=== PATIENT | male | born 1960 | race Caucasian/White ===

== ENCOUNTER 2018-08-10 16:46 | Observation (INO) | payer BC ==
[2018-08-10] MEDS ORDERED: Pantoprazole 40 MG Vial IVPUSH ONE (17:02)
[2018-08-10] MEDS ORDERED: Ondansetron 4 MG/2 ML SDV IV PRN (17:02)
[2018-08-10] MEDS ORDERED: Acetaminophen 325 MG Tab PO PRN (17:02)
[2018-08-10] MEDS ORDERED: Zolpidem 5 MG Tab PO PRN (17:02)
[2018-08-10] MEDS ORDERED: Levofloxacin/Dextrose 5%-Water 500 MG in Premix Bag 1 BAG IV SCH ×2 (17:15→20:00)
[2018-08-10] MEDS ORDERED: metroNIDAZOLE/Normal Saline 500 MG in Premix Bag 1 BAG IV SCH (17:15)
[2018-08-10] MEDS ORDERED: fentaNYL 100 MCG/2 ML SDV IVPUSH PRN (17:41)
[2018-08-10] MEDS: Sodium Chloride 0.9% 1,000 ML IV SCH (17:45)
[2018-08-10] MEDS: fentaNYL 100 MCG/2 ML SDV IVPUSH PRN (18:13)
[2018-08-10] MEDS ORDERED: Tamsulosin 0.4 MG Cap.ER PO ONE (21:03)
[2018-08-10] MEDS: cefTRIAXone 1 GM Vial IVPUSH SCH (21:06)
[2018-08-10] MEDS: Ketorolac 30 MG/ML SDV IVPUSH PRN (21:24)
[2018-08-10] MEDS: Enoxaparin 40 MG/0.4 ML Syringe SUBCUT SCH (21:52)
[2018-08-11] MEDS: Sodium Chloride 0.9% 1,000 ML IV SCH ×3 (03:50→19:29)
[2018-08-11] MEDS: Tamsulosin 0.4 MG Cap.ER PO SCH (08:51)
[2018-08-11] MEDS: Acetaminophen/oxyCODONE 325-5 MG Tab PO PRN ×2 (08:51→16:24)
--- NOTE | 2018-08-11 08:52 | PCM.PN ---
- General Info Date of Service: 08/11/18 Admission Dx/Problem (Free Text): Abdominal Pain Functional Status: Reports: Tolerating Diet, Ambulating, Urinating. Denies: Pain Controlled - Review of Systems General: Denies: Fever, Weakness, Fatigue, Malaise HEENT: Reports: No Symptoms Pulmonary: Denies: Shortness of Breath, Cough Cardiovascular: Denies: Chest Pain, Edema, Lightheadedness Gastrointestinal: Reports: Abdominal Pain. Denies: Nausea, Vomiting Genitourinary: Reports: Hematuria (noted pink-tinged urine this am, pain returned around 0630), Flank Pain Musculoskeletal: Reports: No Symptoms Skin: Reports: No Symptoms Neurological: Reports: No Symptoms Psychiatric: Reports: No Symptoms - Patient Data Vitals - Most Recent: Last Vital Signs Temp 98.4 F 08/11/18 08:01 Pulse 76 08/11/18 08:01 Resp 20 08/11/18 08:01 BP 130/60 08/11/18 08:01 Pulse Ox 97 08/11/18 08:01 Weight - Most Recent: 239 lb 4.8 oz I&O - Last 24 Hours: Intake & Output 08/10/18 08/11/18 08/11/18 22:59 06:59 14:59 Intake Total 1150 Output Total 1100 Balance 50 Lab Results Last 24 Hours: Laboratory Results - last 24 hr 08/10/18 08/10/18 08/10/18 Range/Units 17:02 17:02 17:02 WBC 10.5 H (5.0-10.0) 10^3/uL RBC 4.31 L (4.50-6.00) 10^6/uL Hgb 13.7 L (14.0-18.0) g/dL Hct 39.7 L (40.0-54.0) % MCV 92.1 (82.0-94.0) fL MCH 31.8 (27.0-32.0) pg MCHC 34.5 (33.0-38.0) g/dL RDW Coeff of Silvio 12.4 (11.0-15.0) % Plt Count 201 (150-400) 10^3/uL Neut % (Auto) 77.1 (35-85) % Lymph % (Auto) 13.1 (10-55) % [place] % (Auto) 6.8 (0-16) % Eos % (Auto) 2.6 (0-5) % Baso % (Auto) 0.4 (0-3) % Neut # (Auto) 8.13 H (1.80-7.00) 10^3/uL Lymph # (Auto) 1.38 (1.00-4.80) 10^3/uL [place] # (Auto) 0.72 (0.00-0.80) 10^3/uL Eos # (Auto) 0.27 (0.00-0.45) 10^3/uL Baso # (Auto) 0.04 10^3/uL Sodium 137 (136-145) mEq/L Potassium 4.2 (3.5-5.0) mEq/L Chloride 99 (98-106) mEq/L Carbon Dioxide 26 (21-32) mmol/L BUN 18 (7-18) mg/dL Creatinine 1.3 D (0.7-1.3) mg/dL Est Cr Clr Drug Dosing 64.73 mL/min Estimated GFR (MDRD) 57 L (>=60) mL/min Glucose 131 H (75-99) mg/dL POC Glucose (75-105) mg/dl Calcium 9.1 (8.4-10.1) mg/dL Total Bilirubin 0.8 (0.0-1.0) mg/dL AST 11 L (15-37) U/L ALT 26 (12-78) U/L Alkaline Phosphatase 70 (46-116) U/L C-Reactive Protein 4.8 H (0.2-0.8) mg/dL Total Protein 8.2 (6.4-8.2) g/dL Albumin 3.9 (3.4-5.0) g/dL Amylase (25-115) U/L Lipase (73-393) U/L Urine Color Yellow (YELLOW) Urine Appearance Clear (CLEAR) Urine pH 5.0 (4.5-8.0) Ur Specific [place] 1.010 (1.003-1.020) Urine Protein Negative (NEGATIVE) mg/dL Urine Glucose (UA) Negative (NEGATIVE) mg/dL Urine Ketones 15 H (NEGATIVE) mg/dL Urine Occult Blood Negative (NEGATIVE) Urine Nitrite Negative (NEGATIVE) Urine Bilirubin Negative (NEGATIVE) Urine Urobilinogen 0.2 (0.2-1.0) EU/dL Ur Leukocyte Esterase Negative (NEGATIVE) Urine RBC Not seen (0-5) /HPF Urine WBC Not seen (0-5) /HPF 08/10/18 08/10/18 08/11/18 Range/Units 19:35 20:27 07:49 WBC (5.0-10.0) 10^3/uL RBC (4.50-6.00) 10^6/uL Hgb (14.0-18.0) g/dL Hct (40.0-54.0) % MCV (82.0-94.0) fL MCH (27.0-32.0) pg MCHC (33.0-38.0) g/dL RDW Coeff of Silvio (11.0-15.0) % Plt Count (150-400) 10^3/uL Neut % (Auto) (35-85) % Lymph % (Auto) (10-55) % [place] % (Auto) (0-16) % Eos % (Auto) (0-5) % Baso % (Auto) (0-3) % Neut # (Auto) (1.80-7.00) 10^3/uL Lymph # (Auto) (1.00-4.80) 10^3/uL [place] # (Auto) (0.00-0.80) 10^3/uL Eos # (Auto) (0.00-0.45) 10^3/uL Baso # (Auto) 10^3/uL Sodium (136-145) mEq/L Potassium (3.5-5.0) mEq/L Chloride (98-106) mEq/L Carbon Dioxide (21-32) mmol/L BUN (7-18) mg/dL Creatinine (0.7-1.3) mg/dL Est Cr Clr Drug Dosing mL/min Estimated GFR (MDRD) (>=60) mL/min Glucose (75-99) mg/dL POC Glucose 142 H 126 H (75-105) mg/dl Calcium (8.4-10.1) mg/dL Total Bilirubin (0.0-1.0) mg/dL AST (15-37) U/L ALT (12-78) U/L Alkaline Phosphatase (46-116) U/L C-Reactive Protein (0.2-0.8) mg/dL Total Protein (6.4-8.2) g/dL Albumin (3.4-5.0) g/dL Amylase 39 (25-115) U/L Lipase 100 (73-393) U/L Urine Color (YELLOW) Urine Appearance (CLEAR) Urine pH (4.5-8.0) Ur Specific [place] (1.003-1.020) Urine Protein (NEGATIVE) mg/dL Urine Glucose (UA) (NEGATIVE) mg/dL Urine Ketones (NEGATIVE) mg/dL Urine Occult Blood (NEGATIVE) Urine Nitrite (NEGATIVE) Urine Bilirubin (NEGATIVE) Urine Urobilinogen (0.2-1.0) EU/dL Ur Leukocyte Esterase (NEGATIVE) Urine RBC (0-5) /HPF Urine WBC (0-5) /HPF Med Orders - Current: Current Medications Acetaminophen (Tylenol) 650 mg PO Q4H PRN PRN Reason: Pain (Mild 1-3)/fever Ceftriaxone Sodium (Rocephin) 1 gm IVPUSH Q24H [facility] Last Admin: 08/10/18 21:06 Dose: 1 gm Enoxaparin Sodium (Lovenox) 40 mg SUBCUT BEDTIME [facility] Last Admin: 08/10/18 21:52 Dose: 40 mg Fentanyl (Sublimaze) 0 mcg IVPUSH Q6H PRN PRN Reason: Abdominal Pain Last Admin: 08/10/18 18:13 Dose: 100 mcg Sodium Chloride (Normal Saline) 1,000 mls @ 125 mls/hr IV ASDIRECTED [facility] Last Admin: 08/11/18 03:50 Dose: 125 mls/hr Ketorolac Tromethamine (Toradol) 30 mg IVPUSH Q6H PRN PRN Reason: Pain Stop: 08/15/18 21:03 Last Admin: 08/10/18 21:24 Dose: 30 mg Ondansetron HCl (Zofran) 8 mg IV Q6H PRN PRN Reason: Nausea/Vomiting Last Admin: 08/10/18 19:54 Dose: 8 mg Oxycodone/Acetaminophen (Percocet 325-5 Mg) 1 - 2 tab PO Q6H PRN PRN Reason: Pain Tamsulosin HCl (Flomax) 0.4 mg PO DAILY [facility] Zolpidem Tartrate (Ambien) 5 mg PO BEDTIME PRN PRN Reason: Sleep Discontinued Medications Fentanyl (Sublimaze) 25 - 50 mcg IVPUSH Q2H PRN PRN Reason: Pain Levofloxacin/Dextrose 500 mg/ (Premix) 100 mls @ 100 mls/hr IV Q24H [facility] Last Admin: 08/10/18 18:59 Dose: Not Given Metronidazole 500 mg/ Premix 100 mls @ 100 mls/hr IV Q8H [facility] Last Admin: 08/10/18 17:48 Dose: 100 mls/hr Levofloxacin/Dextrose 500 mg/ (Premix) 100 mls @ 100 mls/hr IV Q24H [facility] Last Admin: 08/10/18 19:36 Dose: 100 mls/hr Pantoprazole Sodium (Protonix Iv) 40 mg IVPUSH ONETIME ONE Stop: 08/10/18 17:03 Last Admin: 08/10/18 17:50 Dose: 40 mg Tamsulosin HCl (Flomax) 0.4 mg PO ONETIME ONE Stop: 08/10/18 21:04 Last Admin: 08/10/18 21:25 Dose: 0.4 mg - Exam General: Alert, Oriented HEENT: Mucous Membr. Moist/[place] Neck: Supple Lungs: Clear to Auscultation, Normal Respiratory Effort Cardiovascular: Regular Rate, Regular Rhythm GI/Abdominal Exam: Normal Bowel Sounds, Soft, Distended, Tender (Left groin/ pelvic area) Extremities: Normal Inspection, No Pedal Edema Skin: Warm, Dry Neurological: No New Focal Deficit - Problem List & Annotations (1) Ureteral stone SNOMED Code(s): 74502989 Code(s): N20.1 - CALCULUS OF URETER Status: Acute Priority: High Current Visit: Yes - Problem List Review Problem List Initiated/Reviewed/Updated: Yes - My Orders Last 24 Hours: My Active Orders 08/11/18 08:41 Acetaminophen/oxyCODONE [Percocet 325-5 MG] 1 - 2 tab PO Q6H PRN 08/11/18 08:45 Tamsulosin [Flomax] 0.4 mg PO DAILY - Assessment Assessment:: Ureteral Stone Abdominal Pain - Plan Plan:: Patient began having pain this AM around 0630. States urine more pink-tinged today. Has been up and ambulating. No nausea or vomiting. Does continue pain in the left groin/pelvic area. He was able to tolerate full diet this am. Had a reaction last evening to Levaquin, got very nauseated, was sneezing and nose was itching. Zofran was given and has had no further nausea. CT scan done last evening did reveal a 5-6 mm stone in the left ureter. Will continue IV fluids, strain urine. Try oral pain meds this am. Give Flomax. Reevaluate later today.
[2018-08-11] MEDS: Ketorolac 30 MG/ML SDV IVPUSH PRN (10:16)
[2018-08-11] MEDS ORDERED: Furosemide 40 MG/4 ML VIAL IVPUSH ONE (15:37)
[2018-08-11] MEDS: Enoxaparin 40 MG/0.4 ML Syringe SUBCUT SCH (19:29)
[2018-08-11] MEDS: cefTRIAXone 1 GM Vial IVPUSH SCH (19:30)
[2018-08-12] MEDS: Acetaminophen/oxyCODONE 325-5 MG Tab PO PRN ×2 (00:34→07:08)
[2018-08-12] MEDS: Sodium Chloride 0.9% 1,000 ML IV SCH (03:35)
[2018-08-12] MEDS: fentaNYL 100 MCG/2 ML SDV IVPUSH PRN (03:42)
[2018-08-12] MEDS ORDERED: Bisacodyl 10 MG Supp RECTAL ONE (08:41)
[2018-08-12] MEDS ORDERED: Ketorolac 30 MG/ML SDV IVPUSH ONE (08:41)
[2018-08-12] MEDS: Tamsulosin 0.4 MG Cap.ER PO SCH (09:14)
[2018-08-12 12:11] VITALS: BP 127/65
--- NOTE | 2018-08-12 22:18 | PCM.DCSUM1 ---
Discharge Summary - Hospital Course Free Text/Narrative:: Patient presented to clinic with one week history of abdominal pain. Had felt "super constipated". Had been taking laxatives without much relief. He has felt nauseated, no vomiting. Patient is noted mostly in left lower quadrant that radiates to flank area. Rated pain at a 6/10. [place] pain getting worse. Metformin held, plans to proceed with CT scan next am. WBC 10.5, CRP 4.8. Electrolytes normal. UA negative. Started on IV fluids. IV FLagyl and Levaquin. Diagnosis: Stroke: No Modified [place] Scale: No Symptoms at All Modified [place] Scale Score: 0 - Discharge Data Discharge Date: 08/12/18 Discharge Disposition: Home, Self-Care 01 Condition: Good - Discharge Diagnosis/Problem(s) (1) Ureteral stone SNOMED Code(s): 34852878 ICD Code: N20.1 - CALCULUS OF URETER Status: Acute Priority: High - Patient Summary/Data Complications: none Hospital Course: Patient continues to have intermittent abdominal and flank pain. Did have CT scan of abdomen and pelvis that showed 5-6 mm stone at the UPJ. No evidence of diverticulitis. Patient continues to have pain, controlled with IV Toradol and Percocet. Have been pushing liquids and IV fluids. Straining urine, no results as of yet. No fevers. Did have flat and upright of abdomen that did show ileus, presence of stool. Was given dulcolax suppository and was able to pass gas. Has been started on Miralax. Did contact DR. Llamas in regards to stone. Advised to continue with pushing fluids, pain medications and Flomax. Will evaluate next week if has not passed stone. - Patient Instructions Diet: Usual Diet as Tolerated Activity: As Tolerated - Discharge Plan *PRESCRIPTION DRUG MONITORING PROGRAM REVIEWED*: No *COPY OF PRESCRIPTION DRUG MONITORING REPORT IN PATIENT ELISA: No Prescriptions/Med Rec: Acetaminophen/oxyCODONE [Percocet 325-5 MG] 1 - 2 tab PO Q6H PRN #30 tablet PRN Reason: Pain Ketorolac [Toradol] 10 mg PO Q6H PRN #20 tab PRN Reason: Pain Polyethylene Glycol 3350 [Miralax] 17 gm PO DAILY #30 powd.pack Tamsulosin [Flomax] 0.4 mg PO DAILY #10 cap.er Home Medications: Home Meds metFORMIN [Glucophage] 850 mg PO BID 06/30/15 [History] Lisinopril 10 mg PO BEDTIME 08/10/18 [History] Phentermine/Topiramate [Qsymia 11.25 mg-69 mg Capsule] 1 tab PO DAILY 08/10/18 [ History] atorvaSTATin Calcium [Atorvastatin Calcium] 10 mg PO BEDTIME 08/10/18 [History] Acetaminophen/oxyCODONE [Percocet 325-5 MG] 1 - 2 tab PO Q6H PRN #30 tablet 02/20 [Rx] Ketorolac [Toradol] 10 mg PO Q6H PRN #20 tab 08/12/18 [Rx] Polyethylene Glycol 3350 [Miralax] 17 gm PO DAILY #30 powd.pack 08/12/18 [Rx] Tamsulosin [Flomax] 0.4 mg PO DAILY #10 cap.er 08/12/18 [Rx] Patient Handouts: Kidney Stones - Discharge Summary/Plan Comment DC Time >30 min.: No - General Info Date of Service: 08/12/18 Admission Dx/Problem (Free Text: Abdominal Pain Functional Status: Reports: Pain Controlled, Tolerating Diet, Ambulating - Review of Systems General: Denies: Fever, Weakness, Fatigue HEENT: Reports: No Symptoms Pulmonary: Denies: Shortness of Breath, Cough Cardiovascular: Denies: Chest Pain, Edema Gastrointestinal: Reports: Abdominal Pain, Constipation. Denies: Nausea, Vomiting Genitourinary: Reports: Hematuria. Denies: Dysuria, Frequency Musculoskeletal: Reports: No Symptoms Skin: Reports: No Symptoms Neurological: Reports: No Symptoms Psychiatric: Reports: No Symptoms - Patient Data Vitals - Most Recent: Last Vital Signs Temp 96.5 F 08/12/18 12:00 Pulse 70 08/12/18 12:00 Resp 16 08/12/18 12:00 BP 127/65 08/12/18 12:00 Pulse Ox 98 08/12/18 12:00 Weight - Most Recent: 239 lb 4.8 oz I&O - Last 24 hours: Intake & Output 08/12/18 08/12/18 08/12/18 06:59 14:59 22:59 Intake Total 1000 Balance 1000 Lab Results - Last 24 hrs: Laboratory Results - last 24 hr 08/11/18 08/12/18 08/12/18 Range/Units 20:12 07:10 11:42 Sodium 138 (136-145) mEq/L Potassium 4.2 (3.5-5.0) mEq/L Chloride 102 (98-106) mEq/L Carbon Dioxide 26 (21-32) mmol/L BUN 21 H (7-18) mg/dL Creatinine 1.4 H (0.7-1.3) mg/dL Est Cr Clr Drug Dosing 60.11 mL/min Estimated GFR (MDRD) 52 L (>=60) mL/min Glucose 133 H (75-99) mg/dL POC Glucose 166 H 190 H (75-105) mg/dl Calcium 8.8 (8.4-10.1) mg/dL Med Orders - Current: Current Medications Discontinued Medications Acetaminophen (Tylenol) 650 mg PO Q4H PRN PRN Reason: Pain (Mild 1-3)/fever Bisacodyl (Dulcolax) 10 mg RECTAL ONETIME ONE Stop: 08/12/18 08:42 Last Admin: 08/12/18 09:25 Dose: 10 mg Ceftriaxone Sodium (Rocephin) 1 gm IVPUSH Q24H [facility] Last Admin: 08/11/18 19:30 Dose: 1 gm Enoxaparin Sodium (Lovenox) 40 mg SUBCUT BEDTIME [facility] Last Admin: 08/11/18 19:29 Dose: 40 mg Fentanyl (Sublimaze) 25 - 50 mcg IVPUSH Q2H PRN PRN Reason: Pain Fentanyl (Sublimaze) 0 mcg IVPUSH Q6H PRN PRN Reason: Abdominal Pain Last Admin: 08/12/18 03:42 Dose: 50 mcg Furosemide (Lasix) 40 mg IVPUSH ONETIME ONE Stop: 08/11/18 15:38 Last Admin: 08/11/18 16:16 Dose: 40 mg Levofloxacin/Dextrose 500 mg/ (Premix) 100 mls @ 100 mls/hr IV Q24H [facility] Last Admin: 08/10/18 18:59 Dose: Not Given Metronidazole 500 mg/ Premix 100 mls @ 100 mls/hr IV Q8H [facility] Last Admin: 08/10/18 17:48 Dose: 100 mls/hr Sodium Chloride (Normal Saline) 1,000 mls @ 125 mls/hr IV ASDIRECTED [facility] Last Admin: 08/12/18 03:35 Dose: 125 mls/hr Levofloxacin/Dextrose 500 mg/ (Premix) 100 mls @ 100 mls/hr IV Q24H [facility] Last Admin: 08/10/18 19:36 Dose: 100 mls/hr Ketorolac Tromethamine (Toradol) 30 mg IVPUSH Q6H PRN PRN Reason: Pain Stop: 08/15/18 21:03 Last Admin: 08/11/18 10:16 Dose: 30 mg Ketorolac Tromethamine (Toradol) 30 mg IVPUSH ONETIME ONE Stop: 08/12/18 08:42 Last Admin: 08/12/18 09:25 Dose: 30 mg Ondansetron HCl (Zofran) 8 mg IV Q6H PRN PRN Reason: Nausea/Vomiting Last Admin: 08/10/18 19:54 Dose: 8 mg Oxycodone/Acetaminophen (Percocet 325-5 Mg) 1 - 2 tab PO Q6H PRN PRN Reason: Pain Last Admin: 08/12/18 07:08 Dose: 2 tab Pantoprazole Sodium (Protonix Iv) 40 mg IVPUSH ONETIME ONE Stop: 08/10/18 17:03 Last Admin: 08/10/18 17:50 Dose: 40 mg Tamsulosin HCl (Flomax) 0.4 mg PO ONETIME ONE Stop: 08/10/18 21:04 Last Admin: 08/10/18 21:25 Dose: 0.4 mg Tamsulosin HCl (Flomax) 0.4 mg PO DAILY [facility] Last Admin: 08/12/18 09:14 Dose: 0.4 mg Zolpidem Tartrate (Ambien) 5 mg PO BEDTIME PRN PRN Reason: Sleep - Exam General: Reports: Alert, Oriented HEENT: Reports: Mucous Membr. Moist/[place] Neck: Reports: Supple Lungs: Reports: Clear to Auscultation, Normal Respiratory Effort Cardiovascular: Reports: Regular Rate, Regular Rhythm GI/Abdominal Exam: Normal Bowel Sounds, Distended, Tender Extremities: Normal Inspection, No Pedal Edema Skin: Reports: Warm, Dry Neurological: Reports: No New Focal Deficit Psy/Mental Status: Reports: Alert, Normal Affect, Normal Mood
== END 2018-08-12 13:32 | disposition home or self-care (01) ==
LOC: CC.MS 16:46 → UNDOADMOB 16:46 → CC.MS 17:02
PROVIDERS: ADMIT Family Medicine; ATTEND Family Medicine
DX: N13.2 Hydronephrosis with renal and ureteral calculous obstruction (principal); N40.0 Benign prostatic hyperplasia without lower urinary tract symptoms; I10 Essential (primary) hypertension; E11.9 Type 2 diabetes mellitus without complications; Z88.1 Allergy status to other antibiotic agents; E66.01 Morbid (severe) obesity due to excess calories; Z68.36 Body mass index [BMI] 36.0-36.9, adult; Z79.84 Long term (current) use of oral hypoglycemic drugs; Z79.899 Other long term (current) drug therapy
CPT/HCPCS: 36415; 74018; 74022; 74177; 80048; 80053; 81001; 82150; 82962; 83690; 85025; 86140; 96361; 96365; 96372; 96375; 96376; A9270-GY; C9113; G0378; J0696; J1650; J1885; J1940; J1956; J2405; J3010; J3490; J7030

== ENCOUNTER 2020-02-12 15:10 | Emergency (ER) | payer BC ==
[2020-02-12] MEDS ORDERED: Ketorolac 30 MG/ML SDV IVPUSH ONE (15:30)
[2020-02-12] MEDS ORDERED: Sodium Chloride 0.9% 1,000 ML IV SCH (15:30)
--- NOTE | 2020-02-12 15:39 | EDM.PDOC ---
ED HPI GENERAL MEDICAL PROBLEM - General Chief Complaint: General Stated Complaint: L) sided abdomen pain Time Seen by Provider: 02/12/20 15:20 Source of Information: Reports: Patient History Limitations: Reports: No Limitations - History of Present Illness INITIAL COMMENTS - FREE TEXT/NARRATIVE: patient presents to ER with complaints of left upper and lower abdominal pain. States started having discomfort last night but became very intense around 1330 today. States was unable to lie down or find a position of comfort at home. Has a history of kidney stones, states pain feels very similar to that. States urine very dark, questions blood present. Denies nausea or vomiting. No fevers. Has been eating. Had bowel movement yesterday that appeared normal. No blood noted. patient had stone last August of 2018. Did require surgical removal and stent placement in to kidney as medications had not helped to "move the stone". Onset: Gradual Duration: Hour(s):, Waxing/Waning Location: Reports: Abdomen Quality: Reports: Sharp Severity: Moderate Improves with: Reports: None Associated Symptoms: Denies: Confusion, Chest Pain, Cough, Fever/Chills, Loss of Appetite, Nausea/Vomiting, Shortness of Breath, Weakness Treatments CANCER SPEC: Reports: NSAIDS Left Abdomen Pain Score (Numeric/FACES): 6 - Related Data Allergies Allergy/AdvReac Type Severity Reaction Status Date / Time azithromycin Allergy Rash Verified 02/12/20 15:43 [From Zithromax Z-Jimbo] levofloxacin [From Levaquin] Allergy Itching Verified 02/12/20 15:43 Home Meds: Home Meds metFORMIN [Glucophage] 850 mg PO BID 06/30/15 [History] Lisinopril 10 mg PO BEDTIME 08/10/18 [History] Phentermine/Topiramate [Qsymia 11.25 mg-69 mg Capsule] 1 tab PO DAILY 08/10/18 [History] atorvaSTATin Calcium [Atorvastatin Calcium] 10 mg PO BEDTIME 08/10/18 [History] Acetaminophen/oxyCODONE [Percocet 325-5 MG] 1 - 2 tab PO Q6H PRN #30 tablet 08/12/18 [Rx] Ertugliflozin Pidolate [Steglatro] 5 mg PO DAILY 02/12/20 [History] Past Medical History Cardiovascular History: Reports: High Cholesterol, Hypertension Respiratory History: Reports: Sleep Apnea Genitourinary History: Reports: BPH, UTI, Recurrent Psychiatric History: Reports: Depression Endocrine/Metabolic History: Reports: Diabetes, Type II, Obesity/BMI 30+ - Past Surgical History HEENT Surgical History: Reports: Tonsillectomy Cardiovascular Surgical History: Reports: None Respiratory Surgical History: Reports: None Male Surgical History: Reports: None Endocrine Surgical History: Reports: None Social & Family History - Family History Family Medical History: Noncontributory - Tobacco Use Smoking Status *Q: Unknown Ever Smoked - Caffeine Use Caffeine Use: Reports: None ED ROS GENERAL - Review of Systems Review Of Systems: See Below Constitutional: Denies: Fever, Chills, Malaise, Weakness, Decreased Appetite HEENT: Reports: No Symptoms Respiratory: Denies: Shortness of Breath, Cough Cardiovascular: Denies: Chest Pain, Edema, Lightheadedness Endocrine: Denies: Fatigue GI/Abdominal: Reports: Abdominal Pain. Denies: Constipation, Diarrhea, Nausea, Vomiting : Reports: Hematuria Musculoskeletal: Reports: No Symptoms Skin: Reports: No Symptoms Neurological: Reports: No Symptoms Psychiatric: Reports: No Symptoms ED EXAM, GENERAL - Physical Exam Exam: See Below Exam Limited By: No Limitations General Appearance: Alert, WD/WN, No Apparent Distress Ears: Normal External Exam, Normal TMs Nose: Normal Inspection, Normal Mucosa, No Blood Throat/Mouth: Normal Inspection, Normal Oropharynx Head: Normocephalic Neck: Normal Inspection, Supple, Non-Tender Respiratory/Chest: No Respiratory Distress, Lungs Clear, Normal Breath Sounds Cardiovascular: Regular Rate, Rhythm GI/Abdominal: Distended, Tender (Left upper and lower quadrant). No: Guarding, Rigid Extremities: Normal Inspection, No Pedal Edema Course - Vital Signs Last Recorded V/S: Last Vital Signs Temp 98.7 F 02/12/20 16:54 Pulse 86 02/12/20 16:54 Resp 16 02/12/20 16:54 BP 121/76 02/12/20 16:54 Pulse Ox 96 02/12/20 16:54 - Orders/Labs/Meds Orders: Active Orders 24 hr Category Date Time Status Abdomen 2V AP Flat Upright [CR] Stat Exams 02/12/20 15:33 Taken Abdomen Pelvis w Cont [CT] Stat Exams 02/12/20 16:10 Taken Sodium Chloride 0.9% [Normal Saline] 1,000 ml Med 02/12/20 15:30 Active IV ASDIRECTED Medication Orders Sodium Chloride (Normal Saline) 1,000 mls @ 500 mls/hr IV ASDIRECTED RUDY Last Admin: 02/12/20 15:40 Dose: 500 mls/hr Documented by: JUANY Labs: Laboratory Tests 02/12/20 02/12/20 02/12/20 Range/Units 15:14 15:40 15:40 WBC 8.4 (5.0-10.0) 10^3/uL RBC 4.80 (4.50-6.00) 10^6/uL Hgb 15.1 (14.0-18.0) g/dL Hct 44.3 (40.0-54.0) % MCV 92.3 (82.0-94.0) fL MCH 31.5 (27.0-32.0) pg MCHC 34.1 (33.0-38.0) g/dL RDW Coeff of Silvio 13.2 (11.0-15.0) % Plt Count 160 (150-400) 10^3/uL Neut % (Auto) 72.7 (35-85) % Lymph % (Auto) 17.3 (10-55) % [place] % (Auto) 5.6 (0-16) % Eos % (Auto) 3.7 (0-5) % Baso % (Auto) 0.7 (0-3) % Neut # (Auto) 6.09 (1.80-7.00) 10^3/uL Lymph # (Auto) 1.45 (1.00-4.80) 10^3/uL [place] # (Auto) 0.47 (0.00-0.80) 10^3/uL Eos # (Auto) 0.31 (0.00-0.45) 10^3/uL Baso # (Auto) 0.06 10^3/uL Sodium 141 (136-145) mEq/L Potassium 3.8 (3.5-5.0) mEq/L Chloride 104 (98-106) mEq/L Carbon Dioxide 24 (21-32) mmol/L BUN 17 (7-18) mg/dL Creatinine 0.9 (0.7-1.3) mg/dL Est Cr Clr Drug Dosing 92.38 mL/min Estimated GFR (MDRD) > 60 (>=60) mL/min Glucose 129 H (75-99) mg/dL Calcium 9.0 (8.4-10.1) mg/dL Total Bilirubin 0.8 (0.0-1.0) mg/dL AST 20 (15-37) U/L ALT 41 (12-78) U/L Alkaline Phosphatase 58 (46-116) U/L C-Reactive Protein 0.2 (0.2-0.8) mg/dL Total Protein 7.4 (6.4-8.2) g/dL Albumin 4.0 (3.4-5.0) g/dL Amylase 96 (25-115) U/L Lipase 380 (73-393) U/L Urine Color Yellow (YELLOW) Urine Appearance Clear (CLEAR) Urine pH 6.0 (4.5-8.0) Ur Specific [place] 1.025 H (1.003-1.020) Urine Protein Negative (NEGATIVE) mg/dL Urine Glucose (UA) 500 H (NEGATIVE) mg/dL Urine Ketones 15 H (NEGATIVE) mg/dL Urine Occult Blood Negative (NEGATIVE) Urine Nitrite Negative (NEGATIVE) Urine Bilirubin Negative (NEGATIVE) Urine Urobilinogen 0.2 (0.2-1.0) EU/dL Ur Leukocyte Esterase Negative (NEGATIVE) Meds: Medications Generic Name Dose Route Start Last Admin Trade Name Freq PRN Reason Stop Dose Admin Sodium Chloride 1,000 mls @ 500 mls/hr 02/12/20 15:30 02/12/20 15:40 Normal Saline IV 500 mls/hr ASDIRECTED RUDY Administration Discontinued Medications Generic Name Dose Route Start Last Admin Trade Name Valerie PRN Reason Stop Dose Admin Iopamidol 100 ml 02/12/20 16:12 02/12/20 16:24 [id number] (76%) IVPUSH 02/12/20 16:13 100 ml ONETIME ONE Administration Ketorolac Tromethamine 30 mg 02/12/20 15:30 02/12/20 15:39 Toradol IVPUSH 02/12/20 15:31 30 mg ONETIME ONE Administration - Re-Assessments/Exams Free Text/Narrative Re-Assessment/Exam: 02/12/20 17:14 Labs are all normal. UA clear. Flat and upright of the abdomen does show air dilation. CT scan done, shows air dilation but no obstruction. Radiologist states may be a narrowing of the duodenum but no obstruction. Suggest UGI if persistent discomfort. 02/12/20 17:27 discussed hospital admission, patient declines. Ambulating in ER Departure - Departure Time of Disposition: 17:21 Disposition: Home, Self-Care 01 Condition: Fair Clinical Impression: Ileus - Discharge Information *PRESCRIPTION DRUG MONITORING PROGRAM REVIEWED*: No *COPY OF PRESCRIPTION DRUG MONITORING REPORT IN PATIENT ELISA: No Instructions: [place] Referrals: Ricardo Crooks MD [Primary Care Provider] - Forms: ED Department Discharge Additional Instructions: 1. Push fluids 2. Ambulate 3. If pain continues or becomes more severe, will need further follow up either in clinic or ER 4. May need UGI to determine if any narrowing or stricture if pain persists. 5. Follow up with Dr. Crooks as needed Sepsis Event Note (ED) - Focused Exam Vital Signs: Vital Signs Temp Pulse Resp BP Pulse Ox 02/12/20 16:54 98.7 F 86 16 121/76 96 - My Orders Last 24 Hours: My Active Orders 02/12/20 15:30 Sodium Chloride 0.9% [Normal Saline] 1,000 ml IV ASDIRECTED 02/12/20 15:33 Abdomen 2V AP Flat Upright [CR] Stat 02/12/20 16:10 Abdomen Pelvis w Cont [CT] Stat - Assessment/Plan Last 24 Hours: My Active Orders 02/12/20 15:30 Sodium Chloride 0.9% [Normal Saline] 1,000 ml IV ASDIRECTED 02/12/20 15:33 Abdomen 2V AP Flat Upright [CR] Stat 02/12/20 16:10 Abdomen Pelvis w Cont [CT] Stat
[2020-02-12 16:01] LABS: CHLORIDE,CL 104 mEq/L (98-106); SODIUM,NA 141 mEq/L (136-145)
[2020-02-12] MEDS ORDERED: Iopamidol 755 Mg/ML 100 ML Bottle IVPUSH ONE (16:12)
[2020-02-12 16:56] VITALS: BP 121/76; PULSE 86
== END 2020-02-12 17:54 | disposition home or self-care (01) ==
LOC: CC.ED 15:10
DX: K56.7 Ileus, unspecified (principal); E78.00 Pure hypercholesterolemia, unspecified; I10 Essential (primary) hypertension; E11.9 Type 2 diabetes mellitus without complications; E66.9 Obesity, unspecified; Z68.31 Body mass index [BMI] 31.0-31.9, adult; Z88.1 Allergy status to other antibiotic agents; Z79.84 Long term (current) use of oral hypoglycemic drugs; Z79.899 Other long term (current) drug therapy
CPT/HCPCS: 36415; 74019; 74177; 80053; 81003; 82150; 83690; 85025; 86140; 96374; 99284-25; J1885; J7030; Q9967

== ENCOUNTER 2021-12-02 10:03 | Emergency (ER) | payer BC ==
[2021-12-02 10:07] VITALS: BP 136/72; PULSE 82
[2021-12-02 11:01] LABS: CHLORIDE,CL 102 mEq/L (98-106); ESTIMATED GFR 98 mL/min (>=60); SODIUM,NA 137 mEq/L (136-145)
[2021-12-02] MEDS: methylPREDNISolone Sodium Succinate 125 MG/2 ML SDV IM SCH (11:10)
== END 2021-12-02 11:33 | disposition home or self-care (01) ==
LOC: CC.ED 10:03
DX: L95.9 Vasculitis limited to the skin, unspecified (principal); E78.00 Pure hypercholesterolemia, unspecified; I10 Essential (primary) hypertension; E11.9 Type 2 diabetes mellitus without complications; E66.9 Obesity, unspecified; Z88.1 Allergy status to other antibiotic agents; Z79.84 Long term (current) use of oral hypoglycemic drugs; Z79.899 Other long term (current) drug therapy; Z68.31 Body mass index [BMI] 31.0-31.9, adult
CPT/HCPCS: 36415; 80053; 85025; 86140; 96372; 99283; J2930